=== PATIENT | male | born 1955 | race African-American/Black ===

== ENCOUNTER 2017-10-29 12:08 | Emergency (ER) | payer OTHER ==
--- NOTE | 2017-10-29 12:38 | EDM.PDOC ---
ED HPI GENERAL MEDICAL PROBLEM - General Chief Complaint: Lower Extremity Injury/Pain Stated Complaint: RIGHT FOOT PAIN IN TOES Time Seen by Provider: 10/29/17 12:25 Source of Information: Reports: Patient History Limitations: Reports: No Limitations - History of Present Illness INITIAL COMMENTS - FREE TEXT/NARRATIVE: Presents reporting pain between the second and third toes of the right foot. That area is intensely tender and mildly red. The patient states it started insidiously yesterday. He denies any known injury. He denies any triggering event or foods in particular beer, organ meats or shellfish. He had the same problem on the left foot a couple years ago and it was diagnosed as gout right foot Pain Score (Numeric/FACES): 9 - Related Data Allergies Allergy/AdvReac Type Severity Reaction Status Date / Time No Known Allergies Allergy Verified 10/29/17 12:19 Home Meds: Home Meds Indomethacin [Indocin] 50 mg PO BID 4 Days #8 cap 10/29/17 [Rx] Lisinopril 10 mg PO DAILY 10/29/17 [History] Prednisone [IMW: predniSONE] 40 mg PO WITHBREAKFAST #5 tab 10/29/17 [Rx] Past Medical History HEENT History: Reports: None Cardiovascular History: Reports: High Cholesterol, Hypertension Respiratory History: Reports: None Gastrointestinal History: Reports: None Genitourinary History: Reports: None Musculoskeletal History: Reports: Gout Neurological History: Reports: None Psychiatric History: Reports: None Endocrine/Metabolic History: Reports: None Hematologic History: Reports: None Immunologic History: Reports: None Oncologic (Cancer) History: Reports: None Dermatologic History: Reports: None - Past Surgical History Head Surgeries/Procedures: Reports: None HEENT Surgical History: Reports: None Cardiovascular Surgical History: Reports: None Respiratory Surgical History: Reports: None GI Surgical History: Reports: None Male Surgical History: Reports: None Endocrine Surgical History: Reports: None Neurological Surgical History: Reports: None Musculoskeletal Surgical History: Reports: None Oncologic Surgical History: Reports: None Dermatological Surgical History: Reports: None Social & Family History - Family History Family Medical History: Noncontributory - Tobacco Use Smoking Status *Q: Never Smoker Second Hand Smoke Exposure: No - Caffeine Use Caffeine Use: Reports: Soda - Recreational Drug Use Recreational Drug Use: No Review of Systems - Review of Systems Review Of Systems: ROS reveals no pertinent complaints other than HPI. ED EXAM, GENERAL - Physical Exam Exam: See Below Exam Limited By: No Limitations General Appearance: Alert, No Apparent Distress Ears: Normal External Exam Nose: Normal Inspection Throat/Mouth: Normal Inspection Head: Atraumatic, Normocephalic Neck: Normal Inspection Respiratory/Chest: No Respiratory Distress, Lungs Clear, Normal Breath Sounds Cardiovascular: Normal Peripheral Pulses, Regular Rate, Rhythm, No Murmur GI/Abdominal: Soft Extremities: Other (Right dorsal foot just proximal to the space between toes 2 and 3 is pink and intensely tender. Full range of motion.) Neurological: Alert, Oriented Psychiatric: Normal Affect, Normal Mood Skin Exam: Warm, Dry, Intact, Normal Color, No Rash Lymphatic: No Adenopathy Course - Vital Signs Last Recorded V/S: Last Vital Signs Temp 36.7 C 10/29/17 12:20 Pulse 88 10/29/17 12:20 Resp 18 10/29/17 12:20 BP 133/82 10/29/17 12:20 Pulse Ox 97 10/29/17 12:20 Departure - Departure Time of Disposition: 12:38 Disposition: Home, Self-Care 01 Condition: Good Clinical Impression: Gout attack Qualifiers: Gout site: toe Gout etiology: idiopathic Laterality: right Qualified Code(s): M10.071 - Idiopathic gout, right ankle and foot - Discharge Information Forms: ED Department Discharge Additional Instructions: 1. Prednisone daily for 5 days 2. Incodin twice daily for 4 days 3. Follow up in primary care
== END 2017-10-29 13:03 | disposition home or self-care (01) ==
LOC: MW.ED 12:08
DX: M10.071 Idiopathic gout, right ankle and foot (principal); Z79.899 Other long term (current) drug therapy
CPT/HCPCS: 99282; 99283

== ENCOUNTER 2022-08-19 10:15 | Emergency (ER) | payer BC, OTHER ==
[2022-08-19] MEDS ORDERED: Orphenadrine 60 MG/2 ML Inj IM STA (10:48)
== END 2022-08-19 11:03 | disposition home or self-care (01) ==
LOC: MW.ED 10:15
DX: M54.32 Sciatica, left side (principal); I10 Essential (primary) hypertension; Z79.899 Other long term (current) drug therapy
CPT/HCPCS: 96372; 99283; J2360